=== PATIENT | male | born 1970 | race Two or more races ===

== ENCOUNTER 2017-05-20 01:29 | Inpatient (IN) | payer MEDICAID ==
[~2017-05-20] VITALS: Ht 157.5 cm; Wt 74.4 kg
[~2017-05-20 01:29] MED LIST: ALBUAER3 IN; ALCOPAD62 XX; AZIT250T PO; INSUINJ37 SC; [UNRECOGNIZED DRUG - CODE] XX
[2017-05-20] MEDS ORDERED: DEXTROSE (50%) 50ML SYRG IV ONE ×2 (02:45→03:30)
[2017-05-20 02:47] LABS: Eosinophils # (auto) 0 uL; Mean Corpuscular Volume 94.5 fL (80.0-100.0)
[2017-05-20 02:50] LABS: Basophils # (auto) 0.1 uL; Basophils % (auto) 0.6 % (0.0-2.0); Eosinophils % (auto) 0.4 % (0.0-7.0); Hematocrit 18.8 % (41.0-53.0); Lymphocytes % (auto) 12.4 % (10.0-50.0); Mean Corpuscular Hemoglobin 32.5 pg (28.0-32.0); Mean Corpuscular Hgb Conc. 34.4 g/dL (32.0-36.0); Monocytes # (auto) 0.4 uL; Monocytes % (auto) 4.5 % (0.0-12.0); Neutrophils # (auto) 6.9 uL; Neutrophils % (auto) 82.1 % (37.0-80.0); Platelet Count (auto) 366 10^3/uL (140-450); Red Blood Cells 1.99 10^6/uL (4.5-5.90); Red Cell Distribution Width 13.5 % (11.8-14.3); White Blood Cell 8.4 10^3/uL (4.4-10.8)
[2017-05-20 02:56] LABS: Hemoglobin 6.5 g/dL (13.5-17.5)
[2017-05-20 03:11] LABS: Albumin 2.2 g/dL (3.4-5.0); Anion Gap 10 (5-15); Blood Urea Nitrogen 32 mg/dL (7-18); Calcium 8.3 mg/dL (8.5-10.1); Carbon Dioxide 21 mmol/L (21-32); Chloride 108 mmol/L (98-107); Magnesium 2.3 mg/dL (1.6-2.6); Sodium 139 mmol/L (136-145)
[2017-05-20 03:13] LABS: Alanine Aminotransferase 14 U/L (16-61); Aspartate Aminotransferase 20 U/L (15-37); GFR African American 30 mL/min; GFR Non-African American 25 mL/min
[2017-05-20 03:16] LABS: Glucose 34 mg/dL (74-106); Potassium 6.5 mmol/L (3.5-5.1)
[2017-05-20 03:17] LABS: Alkaline Phosphatase 90 U/L (45-117); Bilirubin, Total 0.1 mg/dL (0.2-1.0); Total Protein 6.1 g/dL (6.4-8.2)
[2017-05-20] MEDS ORDERED: SODIUM BICARBONATE 8.4 % INJ 50ML VIAL IV ONE (03:30)
[2017-05-20] MEDS ORDERED: InsuLIN REG 1unit/0.01ml Soln (100units/ml) IV ONE (03:30)
[2017-05-20] MEDS ORDERED: CALCIUM CHL 100MG/ML 1,000 MG in D5W 5% 100 ML IV ONE (03:30)
[2017-05-20 04:41] LABS: Alcohol, Urine < 3.0 mg/dL (0-5); Amphetamine Screen, Urine NEGATIVE (NEGATIVE); Barbiturate Scree,Urine NEGATIVE (NEGATIVE); Benzodiazephine Screen, Urine NEGATIVE (NEGATIVE); Cannabinoid Screen, Urine NEGATIVE (NEGATIVE); Cocaine Screen, Urine NEGATIVE (NEGATIVE); Opiate Scree,Urine NEGATIVE (NEGATIVE); Phencyclidine Screen, Urine NEGATIVE (NEGATIVE)
[2017-05-20 04:44] LABS: Urine Bacteria NONE SEEN /hpf (None Seen); Urine Blood Negative /uL (Negative); Urine Specific Gravity 1.009 (1.001-1.035); Urine WBC 1 /hpf (0 - 3)
[2017-05-20] MEDS ORDERED: SODIUM POLYSTYRENE SULF 15GM/60ML SUSP PO ONE ×2 (06:00→12:45)
[2017-05-20 07:07] LABS: BUN/Creatinine Ratio 10.6; Bilirubin, Total 0.1 mg/dL (0.2-1.0); Calcium 7.8 mg/dL (8.5-10.1); Total Protein 5.7 g/dL (6.4-8.2)
[2017-05-20 07:14] LABS: Potassium 6.8 mmol/L (3.5-5.1)
[2017-05-20] MEDS ORDERED: NITROGLYCERIN 0.4 MG SL TAB SL PRN (08:15)
[2017-05-20] MEDS ORDERED: TEMAZEPAM 15 MG CAP PO PRN (08:15)
[2017-05-20] MEDS ORDERED: DEXTROSE (50%) 50ML SYRG IV PRN (08:15)
[2017-05-20] MEDS ORDERED: PANTOPRAZOLE 40 MG/10 ML VIAL IV ONE (08:15)
[2017-05-20] MEDS ORDERED: HYDROcodone-ACET 5/325MG TAB PO PRN (08:15)
[2017-05-20] MEDS ORDERED: ACETAMINOPHEN 500 MG TAB PO PRN (08:15)
[2017-05-20] MEDS ORDERED: PROMETHAZINE HCL 25 MG/ML 1ML IV PRN (08:15)
[2017-05-20] MEDS ORDERED: LORazepam 0.5 MG TAB PO PRN (08:15)
[2017-05-20] MEDS ORDERED: MORPHINE SULFATE 4 MG/ML SYR/VIAL IV PRN ×2 (08:15)
[2017-05-20] MEDS: PANTOPRAZOLE 40 MG/10 ML VIAL IV SCH (09:00)
[2017-05-20] MEDS: SODIUM CHLORIDE 0.9% 1,000 ML IV SCH ×3 (09:00→21:24)
[2017-05-20 09:32] LABS: Amylase 117 U/L (25-115); CRP High Sensitivity < 0.02 mg/dL (< 0.3); Lipase 254 U/L (73-393)
[2017-05-20 11:31] LABS: BUN/Creatinine Ratio 10.6
[2017-05-20 11:34] LABS: Potassium 5.8 mmol/L (3.5-5.1)
[2017-05-20] MEDS: ACCU-CHEK COMFORT CURVE STRIP VI SCH ×3 (12:08→20:07)
[2017-05-20 12:15] VITALS: BP 138/103
[2017-05-20 12:30] VITALS: BP 175/100
[2017-05-20] MEDS ORDERED: FUROSEMIDE 40 MG/4 ML VIAL IV ONE (12:30)
[2017-05-20] MEDS ORDERED: SODIUM CHLORIDE 0.9% 1,000 ML IV ONE (12:30)
[2017-05-20] MEDS: metroNIDAZOLE 500MG/100ML 100 ML IV SCH ×2 (14:12→22:04)
[2017-05-20 15:00] VITALS: BP 166/102
[2017-05-20 17:47] LABS: Hematocrit 21.3 % (41.0-53.0); Hemoglobin 7.1 g/dL (13.5-17.5)
[2017-05-20 17:50] LABS: INR 0.89 (0.9-1.15); Prothrombin Time 9.7 sec (9.37-12.3)
[2017-05-20 17:55] LABS: Phosphorus 4.9 mg/dL (2.5-4.90); Uric Acid 5.8 mg/dL (3.5-7.2)
[2017-05-20] MEDS: LABETALOL HCL 5 MG/ML ML 20ML VIAL IV PRN (20:40)
[2017-05-20] MEDS ORDERED: NIFE60TA59 PO (21:18)
[2017-05-20] MEDS ORDERED: ASPI81CH43 PO (21:18)
[2017-05-20] MEDS ORDERED: HYDR25TA35 PO (21:18)
[2017-05-20] MEDS: SODIUM BICARBONATE 650 MG TAB PO SCH (23:10)
[2017-05-20] MEDS: hydrALAZINE HCL 25 MG TAB PO SCH (23:10)
[2017-05-21] MEDS: ACCU-CHEK COMFORT CURVE STRIP VI SCH ×6 (00:06→20:00)
[2017-05-21 00:31] LABS: Hematocrit 19.8 % (41.0-53.0)
[2017-05-21 00:35] LABS: Hemoglobin 6.9 g/dL (13.5-17.5)
[2017-05-21 05:06] LABS: Basophils # (auto) 0.1 uL; Eosinophils # (auto) 0.1 uL; Lymphocytes # (auto) 1.7 uL; Lymphocytes % (auto) 30.2 % (10.0-50.0); Monocytes # (auto) 0.3 uL; Neutrophils # (auto) 3.5 uL
[2017-05-21 05:09] LABS: Basophils % (auto) 1.2 % (0.0-2.0); Eosinophils % (auto) 2.1 % (0.0-7.0); Hematocrit 20.6 % (41.0-53.0); Mean Corpuscular Hemoglobin 31.7 pg (28.0-32.0); Mean Corpuscular Hgb Conc. 33.3 g/dL (32.0-36.0); Monocytes % (auto) 5.7 % (0.0-12.0); Neutrophils % (auto) 60.8 % (37.0-80.0); Nucleated Red Blood Cells % 0.1 %; Platelet Count (auto) 287 10^3/uL (140-450); Red Blood Cells 2.17 10^6/uL (4.5-5.90); Red Cell Distribution Width 15.1 % (11.8-14.3); White Blood Cell 5.7 10^3/uL (4.4-10.8)
[2017-05-21 05:31] LABS: Hemoglobin 6.9 g/dL (13.5-17.5)
[2017-05-21 05:32] LABS: BUN/Creatinine Ratio 8.7; Calcium 8.1 mg/dL (8.5-10.1)
[2017-05-21] MEDS: metroNIDAZOLE 500MG/100ML 100 ML IV SCH ×3 (06:08→22:00)
[2017-05-21] MEDS: hydrALAZINE HCL 25 MG TAB PO SCH ×3 (06:08→22:00)
[2017-05-21 06:22] LABS: Bilirubin, Total 0.2 mg/dL (0.2-1.0); Total Protein 5.6 g/dL (6.4-8.2)
[2017-05-21] MEDS: SODIUM CHLORIDE 0.9% 1,000 ML IV SCH ×3 (08:12→23:00)
[2017-05-21 09:08] VITALS: BP 151/98
[2017-05-21 09:32] VITALS: BP 157/86
[2017-05-21] MEDS: PANTOPRAZOLE 40 MG/10 ML VIAL IV SCH (09:56)
[2017-05-21] MEDS: NIFEdipine ER 30 MG TAB PO SCH (09:56)
[2017-05-21] MEDS: SODIUM BICARBONATE 650 MG TAB PO SCH ×2 (09:56→22:00)
[2017-05-21 12:01] VITALS: BP 180/99
[2017-05-21] MEDS: LABETALOL HCL 5 MG/ML ML 20ML VIAL IV PRN (12:43)
[2017-05-21] MEDS: FAMOTIDINE 20 MG TAB PO SCH (13:03)
[2017-05-21 13:37] LABS: Hemoglobin 8.2 g/dL (13.5-17.5)
[2017-05-21 13:40] LABS: Hematocrit 24.4 % (41.0-53.0)
[2017-05-21 14:05] LABS: % Iron Saturation 34.4 % (20-55)
[2017-05-21 15:33] VITALS: BP 159/90
[2017-05-21 16:00] VITALS: BP 141/88
[2017-05-21] MEDS ORDERED: SODI650T PO (16:12)
[2017-05-21 20:00] VITALS: BP 149/92
[2017-05-21 21:09] LABS: Urine Bacteria NONE SEEN /hpf (None Seen); Urine Blood Negative /uL (Negative); Urine Hyaline Cast FEW /lpf (0 - 2); Urine Mucus FEW (None Seen); Urine WBC 2 /hpf (0 - 3)
[2017-05-21] MEDS ORDERED: FAMOTIDINE 20 MG TAB PO SCH (22:00)
[2017-05-22] VITALS (7 sets, daily range): BP systolic 121–161; BP diastolic 61–88
[2017-05-22 03:06] LABS: RPR Non Reactive (Non Reactive)
[2017-05-22] MEDS: ACCU-CHEK COMFORT CURVE STRIP VI SCH ×5 (04:00→20:34)
[2017-05-22 05:56] LABS: Basophils % (auto) 0.9 % (0.0-2.0); Eosinophils # (auto) 0.1 uL; Hematocrit 24.5 % (41.0-53.0); Hemoglobin 8.3 g/dL (13.5-17.5); Monocytes % (auto) 6.1 % (0.0-12.0); Red Cell Distribution Width 15.6 % (11.8-14.3)
[2017-05-22 06:01] LABS: Basophils # (auto) 0.1 uL; Eosinophils % (auto) 2.3 % (0.0-7.0); Lymphocytes # (auto) 1.6 uL; Lymphocytes % (auto) 26.9 % (10.0-50.0); Mean Corpuscular Hemoglobin 31.2 pg (28.0-32.0); Mean Corpuscular Volume 91.9 fL (80.0-100.0); Monocytes # (auto) 0.4 uL; Neutrophils # (auto) 3.7 uL; Neutrophils % (auto) 63.8 % (37.0-80.0); Platelet Count (auto) 277 10^3/uL (140-450); Red Blood Cells 2.66 10^6/uL (4.5-5.90); White Blood Cell 5.8 10^3/uL (4.4-10.8)
[2017-05-22] MEDS: metroNIDAZOLE 500MG/100ML 100 ML IV SCH ×3 (06:09→21:57)
[2017-05-22] MEDS: hydrALAZINE HCL 25 MG TAB PO SCH ×3 (06:10→21:57)
[2017-05-22 06:22] LABS: Albumin 1.8 g/dL (3.4-5.0); Bilirubin, Total 0.3 mg/dL (0.2-1.0); Calcium 7.5 mg/dL (8.5-10.1); Magnesium 1.8 mg/dL (1.6-2.6); Potassium 4.8 mmol/L (3.5-5.1); Total Protein 5.2 g/dL (6.4-8.2)
[2017-05-22 08:07] LABS: Immunoglobulin G, Serum 691 mg/dL (700-1600)
[2017-05-22] MEDS ORDERED: MAGNESIUM SULFATE 1GM/100ML 100 ML IV ONE (09:45)
[2017-05-22] MEDS: SODIUM CHLORIDE 0.9% 1,000 ML IV SCH ×2 (09:50→20:27)
[2017-05-22] MEDS: SODIUM BICARBONATE 650 MG TAB PO SCH ×2 (10:56→21:57)
[2017-05-22] MEDS: FAMOTIDINE 20 MG TAB PO SCH (10:56)
[2017-05-22] MEDS: NIFEdipine ER 30 MG TAB PO SCH (10:58)
[2017-05-22 16:08] LABS: Protein, Urine 372.9 mg/dL (0.0-11.9)
[2017-05-22] MEDS ORDERED: METF-370 PO (18:03)
[2017-05-23] MEDS: ACCU-CHEK COMFORT CURVE STRIP VI SCH ×7 (00:26→23:52)
[2017-05-23] MEDS: SODIUM CHLORIDE 0.9% 1,000 ML IV SCH ×2 (04:42→17:56)
[2017-05-23 05:25] VITALS: BP 127/70
[2017-05-23] MEDS: metroNIDAZOLE 500MG/100ML 100 ML IV SCH (05:40)
[2017-05-23] MEDS: hydrALAZINE HCL 25 MG TAB PO SCH ×3 (05:41→22:14)
[2017-05-23 05:42] LABS: Eosinophils # (auto) 0.1 uL; Monocytes # (auto) 0.3 uL; Neutrophils # (auto) 3.1 uL
[2017-05-23 05:43] LABS: BUN/Creatinine Ratio 7.9; Calcium 7.6 mg/dL (8.5-10.1); Magnesium 2.3 mg/dL (1.6-2.6); Potassium 4.9 mmol/L (3.5-5.1)
[2017-05-23 05:45] LABS: Basophils # (auto) 0.1 uL; Basophils % (auto) 1.1 % (0.0-2.0); Eosinophils % (auto) 2.7 % (0.0-7.0); Hematocrit 22.6 % (41.0-53.0); Hemoglobin 8.2 g/dL (13.5-17.5); Lymphocytes # (auto) 1.2 uL; Lymphocytes % (auto) 24.6 % (10.0-50.0); Mean Corpuscular Hemoglobin 33.1 pg (28.0-32.0); Mean Corpuscular Hgb Conc. 36.1 g/dL (32.0-36.0); Mean Corpuscular Volume 91.8 fL (80.0-100.0); Monocytes % (auto) 6.7 % (0.0-12.0); Neutrophils % (auto) 64.9 % (37.0-80.0); Platelet Count (auto) 254 10^3/uL (140-450); Red Blood Cells 2.46 10^6/uL (4.5-5.90); Red Cell Distribution Width 15.8 % (11.8-14.3); White Blood Cell 4.8 10^3/uL (4.4-10.8)
[2017-05-23 09:00] VITALS: BP 134/87
[2017-05-23] MEDS: SODIUM BICARBONATE 650 MG TAB PO SCH ×2 (12:21→22:14)
[2017-05-23] MEDS: NIFEdipine ER 30 MG TAB PO SCH (12:23)
[2017-05-23] MEDS: metroNIDAZOLE 500 MG TAB PO SCH ×3 (12:23→23:52)
[2017-05-23] MEDS: FAMOTIDINE 20 MG TAB PO SCH (12:23)
[2017-05-23 13:00] VITALS: BP 152/84
[2017-05-23 17:00] VITALS: BP 162/86
[2017-05-23 22:00] VITALS: BP 144/84
[2017-05-24] MEDS: SODIUM CHLORIDE 0.9% 1,000 ML IV SCH ×3 (00:59→12:45)
[2017-05-24] MEDS: ACCU-CHEK COMFORT CURVE STRIP VI SCH ×5 (04:13→20:18)
[2017-05-24 05:00] VITALS: BP 132/72
[2017-05-24] MEDS: metroNIDAZOLE 500 MG TAB PO SCH ×3 (05:41→17:56)
[2017-05-24] MEDS: hydrALAZINE HCL 25 MG TAB PO SCH ×3 (05:41→21:57)
[2017-05-24 07:37] LABS: Hematocrit 23.1 % (41.0-53.0)
[2017-05-24 07:54] LABS: BUN/Creatinine Ratio 7.6; Calcium 7.6 mg/dL (8.5-10.1)
[2017-05-24 08:00] VITALS: BP 142/78
[2017-05-24 09:00] VITALS: BP 142/78
[2017-05-24 09:45] LABS: Hepatitis B Surface Antigen Negative (Negative)
[2017-05-24 10:10] LABS: Hepatitis C Antibody Negative (Negative)
[2017-05-24] MEDS: NIFEdipine ER 30 MG TAB PO SCH (11:09)
[2017-05-24] MEDS: SODIUM BICARBONATE 650 MG TAB PO SCH ×2 (11:09→21:57)
[2017-05-24] MEDS: FAMOTIDINE 20 MG TAB PO SCH (11:09)
[2017-05-24 13:00] VITALS: BP 154/95
[2017-05-24 13:44] LABS: Creatinine, Urine 36 mg/dL (30.0-125.0); Sodium Urine 108 mmol/L (40-220)
[2017-05-24 17:00] VITALS: BP 149/81
[2017-05-24 22:00] VITALS: BP 154/84
[2017-05-25] MEDS: metroNIDAZOLE 500 MG TAB PO SCH ×4 (00:33→17:46)
[2017-05-25] MEDS: ACCU-CHEK COMFORT CURVE STRIP VI SCH ×5 (00:34→16:00)
[2017-05-25 05:35] VITALS: BP 123/80
[2017-05-25] MEDS: hydrALAZINE HCL 25 MG TAB PO SCH ×2 (05:36→14:03)
[2017-05-25] MEDS: SODIUM CHLORIDE 0.9% 1,000 ML IV SCH (05:36)
[2017-05-25 05:50] LABS: Calcium 7.9 mg/dL (8.5-10.1); Potassium 5.1 mmol/L (3.5-5.1)
[2017-05-25 05:54] LABS: BUN/Creatinine Ratio 7.9
[2017-05-25] MEDS ORDERED: GELATIN 1 SPONGE SIZE 50 TOP ONE (06:30)
[2017-05-25] MEDS ORDERED: LIDOCAINE 2%HCL (LOCAL ANESTH.) INJ 20ML MDV ONE (06:30)
[2017-05-25 07:52] VITALS: BP 141/79
[2017-05-25] MEDS: SODIUM BICARBONATE 650 MG TAB PO SCH (09:14)
[2017-05-25] MEDS: NIFEdipine ER 30 MG TAB PO SCH (09:16)
[2017-05-25] MEDS: FAMOTIDINE 20 MG TAB PO SCH (09:16)
[2017-05-25 11:31] VITALS: BP 144/72
[2017-05-25 16:51] VITALS: BP 145/83
[2017-05-25 22:00] VITALS: BP 143/77
[2017-05-26] VITALS (13 sets, daily range): BP systolic 139–155; BP diastolic 77–93
[2017-05-26] MEDS: SODIUM BICARBONATE 650 MG TAB PO SCH ×3 (00:11→21:52)
[2017-05-26] MEDS: ACCU-CHEK COMFORT CURVE STRIP VI SCH ×4 (00:11→09:44)
[2017-05-26] MEDS: hydrALAZINE HCL 25 MG TAB PO SCH ×4 (00:12→21:53)
[2017-05-26] MEDS: metroNIDAZOLE 500 MG TAB PO SCH ×4 (00:14→17:30)
[2017-05-26 07:16] LABS: BUN/Creatinine Ratio 7.7; Calcium 8.1 mg/dL (8.5-10.1); Potassium 5.2 mmol/L (3.5-5.1)
[2017-05-26 07:26] LABS: Hemoglobin 8.8 g/dL (13.5-17.5)
[2017-05-26] MEDS ORDERED: LIDOCAINE 2%HCL (LOCAL ANESTH.) INJ 20ML MDV ONE (08:20)
[2017-05-26] MEDS ORDERED: fentaNYL CITRATE 100 MCG/2 ML VL ONE (08:22)
[2017-05-26] MEDS ORDERED: MIDAZOLAM HCL 1MG/1ML-2 ML VIAL ONE (08:22)
[2017-05-26] MEDS: FAMOTIDINE 20 MG TAB PO SCH (09:45)
[2017-05-26] MEDS: NIFEdipine ER 30 MG TAB PO SCH (09:45)
[2017-05-26] MEDS ORDERED: LISINOPRIL 10 MG TAB PO SCH (10:00)
[2017-05-26] MEDS: LABETALOL HCL 5 MG/ML ML 20ML VIAL IV PRN (13:43)
[2017-05-26] MEDS ORDERED: hydrALAZINE HCL 25 MG TAB PO ONE (14:15)
[2017-05-26 14:24] LABS: Basophils # (auto) 0 uL; Basophils % (auto) 0.7 % (0.0-2.0); Eosinophils # (auto) 0.1 uL; Eosinophils % (auto) 2.4 % (0.0-7.0); Hemoglobin 7.7 g/dL (13.5-17.5); Lymphocytes % (auto) 19.2 % (10.0-50.0); Mean Corpuscular Hemoglobin 31.3 pg (28.0-32.0); Mean Corpuscular Hgb Conc. 33.6 g/dL (32.0-36.0); Mean Corpuscular Volume 93.2 fL (80.0-100.0); Monocytes # (auto) 0.3 uL; Monocytes % (auto) 5.9 % (0.0-12.0); Neutrophils # (auto) 3.6 uL; Neutrophils % (auto) 71.8 % (37.0-80.0); Nucleated Red Blood Cells % 0.1 %; Platelet Count (auto) 211 10^3/uL (140-450); Red Blood Cells 2.47 10^6/uL (4.5-5.90); Red Cell Distribution Width 15.7 % (11.8-14.3)
[2017-05-26] MEDS ORDERED: SODIUM POLYSTYRENE SULF 15GM/60ML SUSP PO ONE (17:00)
[2017-05-26 20:32] LABS: Urine Bacteria NONE SEEN /hpf (None Seen); Urine Blood 1+ /uL (Negative); Urine WBC 2 /hpf (0 - 3)
[2017-05-26 23:02] LABS: Basophils # (auto) 0 uL; Eosinophils # (auto) 0.1 uL; Lymphocytes # (auto) 0.9 uL; Mean Corpuscular Hemoglobin 31.3 pg (28.0-32.0); Mean Corpuscular Hgb Conc. 33.5 g/dL (32.0-36.0)
[2017-05-26 23:04] LABS: Basophils % (auto) 0.4 % (0.0-2.0); Eosinophils % (auto) 1.8 % (0.0-7.0); Hematocrit 21.5 % (41.0-53.0); Hemoglobin 7.2 g/dL (13.5-17.5); Lymphocytes % (auto) 16.5 % (10.0-50.0); Mean Corpuscular Volume 93.6 fL (80.0-100.0); Monocytes # (auto) 0.4 uL; Monocytes % (auto) 6.5 % (0.0-12.0); Neutrophils # (auto) 4.1 uL; Neutrophils % (auto) 74.8 % (37.0-80.0); Platelet Count (auto) 201 10^3/uL (140-450); Red Cell Distribution Width 15.7 % (11.8-14.3); White Blood Cell 5.5 10^3/uL (4.4-10.8)
[2017-05-27] VITALS (8 sets, daily range): BP systolic 129–166; BP diastolic 77–96
[2017-05-27] MEDS: metroNIDAZOLE 500 MG TAB PO SCH ×3 (00:13→12:18)
[2017-05-27 06:04] LABS: Basophils # (auto) 0 uL; Eosinophils # (auto) 0.1 uL; Neutrophils # (auto) 3.6 uL; White Blood Cell 4.9 10^3/uL (4.4-10.8)
[2017-05-27 06:05] LABS: Red Cell Distribution Width 15.4 % (11.8-14.3)
[2017-05-27 06:07] LABS: Basophils % (auto) 0.8 % (0.0-2.0); Eosinophils % (auto) 1.8 % (0.0-7.0); Hematocrit 20.2 % (41.0-53.0); Lymphocytes # (auto) 0.8 uL; Mean Corpuscular Hemoglobin 31.8 pg (28.0-32.0); Mean Corpuscular Hgb Conc. 34.7 g/dL (32.0-36.0); Mean Corpuscular Volume 91.7 fL (80.0-100.0); Monocytes # (auto) 0.4 uL; Monocytes % (auto) 7.6 % (0.0-12.0); Neutrophils % (auto) 72.8 % (37.0-80.0); Platelet Count (auto) 191 10^3/uL (140-450); Red Blood Cells 2.21 10^6/uL (4.5-5.90)
[2017-05-27] MEDS: hydrALAZINE HCL 25 MG TAB PO SCH ×2 (06:22→14:14)
[2017-05-27 06:24] LABS: Calcium 8.2 mg/dL (8.5-10.1); Potassium 4.6 mmol/L (3.5-5.1)
[2017-05-27 06:43] LABS: BUN/Creatinine Ratio 7.5
[2017-05-27] MEDS: FAMOTIDINE 20 MG TAB PO SCH (09:15)
[2017-05-27] MEDS: SODIUM BICARBONATE 650 MG TAB PO SCH (09:15)
[2017-05-27] MEDS: NIFEdipine ER 30 MG TAB PO SCH (09:16)
[2017-05-27] MEDS ORDERED: HYDR50TA15 PO (11:08)
[2017-05-27] MEDS ORDERED: NIFE90TA30 PO (11:08)
[2017-05-27] MEDS ORDERED: METR500T PO (11:08)
[2017-05-27] MEDS ORDERED: NIFEdipine ER 30 MG TAB PO ONE (11:15)
[2017-05-27] MEDS ORDERED: MORPHINE SULFATE 4 MG/ML SYR/VIAL IV PRN (11:15)
[2017-05-27] MEDS ORDERED: TEMAZEPAM 15 MG CAP PO PRN (11:15)
[2017-05-27] MEDS ORDERED: HYDROcodone-ACET 5/325MG TAB PO PRN (11:15)
[2017-05-27] MEDS ORDERED: LORazepam 0.5 MG TAB PO PRN (11:15)
[2017-05-27] MEDS ORDERED: FER325T PO (11:16)
[2017-05-27 15:38] LABS: Hematocrit 24.7 % (41.0-53.0); Hemoglobin 8.5 g/dL (13.5-17.5)
[2017-05-27 15:52] LABS: INR 0.95 (0.9-1.15); Prothrombin Time 10.3 sec (9.37-12.3)
[2017-05-28] MEDS ORDERED: NIFEdipine ER 30 MG TAB PO SCH (10:00)
== END 2017-05-27 16:30 | disposition home or self-care (01) | DRG 420 ==
LOC: EDBD 01:29 → ER 01:29 → TELE 01:30 → DOU IN ICU 05-21 14:59 → TELE-WESTW 05-22 12:27
PROVIDERS: ADMIT Internal Medicine; ATTEND Internal Medicine
PROC: 30233N1 Transfusion of Nonautologous Red Blood Cells into Peripheral Vein, Percutaneous Approach (ICD-10-PCS; principal; 2017-05-20)
PROC: 0TB13ZX Excision of Left Kidney, Percutaneous Approach, Diagnostic (ICD-10-PCS; 2017-05-26)
DX: E11.649 Type 2 diabetes mellitus with hypoglycemia without coma (principal); N17.0 Acute kidney failure with tubular necrosis; A04.72 Enterocolitis due to Clostridium difficile, not specified as recurrent; E44.0 Moderate protein-calorie malnutrition; E11.22 Type 2 diabetes mellitus with diabetic chronic kidney disease; I12.9 Hypertensive chronic kidney disease with stage 1 through stage 4 chronic kidney disease, or unspecified chronic kidney disease; I16.0 Hypertensive urgency; E87.5 Hyperkalemia; N18.9 Chronic kidney disease, unspecified; D63.8 Anemia in other chronic diseases classified elsewhere; Z82.49 Family history of ischemic heart disease and other diseases of the circulatory system; Z83.3 Family history of diabetes mellitus; T38.3X5A Adverse effect of insulin and oral hypoglycemic [antidiabetic] drugs, initial encounter
CPT/HCPCS: 10022; 36415; 71045; 74176; 76775; 77012; 80048; 80053; 80061; 80307; 81001; 82043; 82150; 82270; 82306; 82378; 82570; 82784; 82962; 83036; 83520; 83540; 83550; 83690; 83735; 83970; 84100; 84132; 84156; 84300; 84484; 84550; 85014; 85018; 85025; 85045; 85610; 85652; 85730; 86038; 86141; 86160; 86256; 86334; 86335; 86592; 86703; 86803; 86850; 86900; 86901; 86920; 87081; 87340; 87493; 93005; 96374; 96375; 96376; C9113; J1815; J2250; J3490; J7060

== ENCOUNTER 2019-04-27 12:18 | Inpatient (IN) | payer SELFPAY ==
[~2019-04-27] VITALS: Ht 172.7 cm; Wt 71.7 kg
[~2019-04-27 12:18] MED LIST changes: +ACET500T48 PO; -ALBUAER3 IN; -ALCOPAD62 XX; +ATOR20TA50 PO; -AZIT250T PO; +CALC667C5 PO; +DOCU-94 PO; +FER325T PO; +HYDR-2691 PO; -INSUINJ37 SC; +NIFE1TAB30 PO; -[UNRECOGNIZED DRUG - CODE] XX
[2019-04-27] MEDS ORDERED: ONDANSETRON ODT 4 MG TAB PO ONE ×2 (12:53→13:00)
[2019-04-27 13:54] LABS: Basophils # (auto) 0.1 uL; Basophils % (auto) 1.2 % (0.0-2.0); Eosinophils # (auto) 0.3 uL; Eosinophils % (auto) 3.3 % (0.0-7.0); Hematocrit 31.3 % (41.0-53.0); Hemoglobin 10.6 g/dL (13.5-17.5); Mean Corpuscular Hemoglobin 30.9 pg (28.0-32.0); Mean Corpuscular Hgb Conc. 34.1 g/dL (32.0-36.0); Mean Corpuscular Volume 90.7 fL (80.0-100.0); Monocytes # (auto) 0.3 uL; Monocytes % (auto) 3.8 % (0.0-12.0); Neutrophils # (auto) 6.3 uL; Neutrophils % (auto) 79.7 % (37.0-80.0); Platelet Count (auto) 216 10^3/uL (140-450); Red Blood Cells 3.45 10^6/uL (4.5-5.90); Red Cell Distribution Width 14.9 % (11.8-14.3); White Blood Cell 7.9 10^3/uL (4.4-10.8)
[2019-04-27 14:06] LABS: Albumin 2.9 g/dL (3.4-5.0); Anion Gap 14 (5-15); BUN/Creatinine Ratio 4.6; Blood Urea Nitrogen 55 mg/dL (7-18); Calcium 7.3 mg/dL (8.5-10.1); Carbon Dioxide 25 mmol/L (21-32); Chloride 97 mmol/L (98-107); GFR African American 6 mL/min; GFR Non-African American 5 mL/min; Glucose 140 mg/dL (74-106); Potassium 4.7 mmol/L (3.5-5.1); Sodium 136 mmol/L (136-145)
[2019-04-27 14:09] LABS: Alanine Aminotransferase 28 U/L (16-61); Alkaline Phosphatase 82 U/L (45-117); Aspartate Aminotransferase 22 U/L (15-37); Bilirubin, Total 0.3 mg/dL (0.2-1.0); Blood Alcohol < 3.0 mg/dL (0-5); Total Protein 6.7 g/dL (6.4-8.2)
[2019-04-27] MEDS ORDERED: LEVETIRACETAM INJ 1,000 MG in D5W 5% 100 ML IV ONE (14:30)
[2019-04-27] MEDS ORDERED: PROMETHAZINE HCL 25 MG/ML 1ML IV PRN (15:15)
[2019-04-27] MEDS ORDERED: MORPHINE SULF INJ 2 MG/ML SYRINGE 1ML IV PRN (15:15)
[2019-04-27] MEDS ORDERED: DEXTROSE (50%) 50ML SYRG IV PRN (15:15)
[2019-04-27] MEDS ORDERED: LACTULOSE 20Gm/30ML SOLN PO PRN (15:15)
[2019-04-27] MEDS ORDERED: LORazepam 2MG/ML-1ML VIAL IV PRN (15:15)
[2019-04-27] MEDS ORDERED: ACETAMINOPHEN 500 MG TAB PO PRN (15:15)
[2019-04-27] MEDS ORDERED: TEMAZEPAM 15 MG CAP PO PRN (15:15)
[2019-04-27] MEDS ORDERED: NITROGLYCERIN 0.4 MG SL TAB SL PRN (15:15)
[2019-04-27] MEDS ORDERED: traMADol HCL 50 MG TAB PO PRN (15:15)
[2019-04-27] MEDS: InsuLIN REG 1unit/0.01ml Soln (100units/ml) SC SCH ×2 (17:00→22:00)
[2019-04-27] MEDS: ACCU-CHEK COMFORT CURVE STRIP VI SCH ×2 (17:29→22:05)
[2019-04-27 17:57] VITALS: BP 168/91
[2019-04-27] MEDS: CALCIUM ACETATE 667 MG CAP PO SCH (18:00)
[2019-04-27 18:11] VITALS: BP 168/91
--- NOTE | 2019-04-27 18:44 | NUR ---
PT ARRIVED TO FLOOR FROM ER AT APPROX. 1740. A/O X 4. AT BEDSIDE. C/O HEADACHE, MEDICATED WITH TYLENOL X 1. SEIZURE PRECAUTIONS IN PLACE. MONITORING CLOSELY.
--- NOTE | 2019-04-27 19:20 | NUR ---
Opening Shift Note Report received from day shift RN. Patient awake sitting in bed and A&O x4. No S/S of distress/SOB noted. Patient complains of headache 7/10 on a numerical scale. Will medicate as ordered. Seizure precautions continued. Instructed on POC and to call for assist PRN, will continue to monitor for changes Q1hr and PRN.
[2019-04-27] MEDS: FERROUS SULFATE 325 MG TAB PO SCH (20:46)
[2019-04-27 22:00] VITALS: BP 151/76
[2019-04-27] MEDS: hydrALAZINE HCL 25 MG TAB PO SCH (22:00)
[2019-04-27] MEDS: LEVETIRACETAM 500 MG TAB PO SCH (22:01)
[2019-04-27] MEDS: ATORVASTATIN 20 MG TAB PO SCH (22:01)
[2019-04-27] MEDS: DOCUSATE SOD 100 MG CAP PO SCH (22:01)
[2019-04-28] VITALS (8 sets, daily range): BP systolic 124–170; BP diastolic 74–92
[2019-04-28] MEDS: InsuLIN REG 1unit/0.01ml Soln (100units/ml) SC SCH ×5 (06:21→22:30)
[2019-04-28] MEDS: hydrALAZINE HCL 25 MG TAB PO SCH ×3 (06:21→22:23)
[2019-04-28] MEDS: ACCU-CHEK COMFORT CURVE STRIP VI SCH ×4 (06:22→22:24)
--- NOTE | 2019-04-28 07:00 | NUR ---
ASSUMED CARE OF PATIENT FROM FURNITURE MAKER THOMAS PEÑA. PATIENT IS AWAKE AND ALERT X4. PATIENT HAS NO S/S OF DISTRESS/SOB OR PAIN. INSTRUCTED PATIENT ON POC, PATIENT VERBALIZED UNDERSTANDING. FALL PRECAUTIONS IN PLACE, BED WHEELS LOCKED PADDED SIDE RAILS RAISED X2, BED ALARM ON, CALL LIGHT IS WITHIN REACH. WILL CONTINUE TO MONITOR.
[2019-04-28 07:23] LABS: Basophils # (auto) 0.1 uL; Basophils % (auto) 1.2 % (0.0-2.0); Eosinophils # (auto) 0.3 uL; Eosinophils % (auto) 5.9 % (0.0-7.0); Hematocrit 25.6 % (41.0-53.0); Hemoglobin 8.9 g/dL (13.5-17.5); Lymphocytes # (auto) 1.6 uL; Lymphocytes % (auto) 28.5 % (10.0-50.0); Mean Corpuscular Hemoglobin 31.6 pg (28.0-32.0); Mean Corpuscular Hgb Conc. 34.8 g/dL (32.0-36.0); Mean Corpuscular Volume 90.9 fL (80.0-100.0); Monocytes # (auto) 0.3 uL; Monocytes % (auto) 6.1 % (0.0-12.0); Neutrophils # (auto) 3.2 uL; Neutrophils % (auto) 58.3 % (37.0-80.0); Platelet Count (auto) 184 10^3/uL (140-450); Red Blood Cells 2.82 10^6/uL (4.5-5.90); Red Cell Distribution Width 15.4 % (11.8-14.3); White Blood Cell 5.5 10^3/uL (4.4-10.8)
[2019-04-28 07:35] LABS: Calcium 6.7 mg/dL (8.5-10.1); Potassium 4.7 mmol/L (3.5-5.1)
[2019-04-28 07:41] LABS: Albumin 2.5 g/dL (3.4-5.0); BUN/Creatinine Ratio 4.9; Bilirubin, Total 0.3 mg/dL (0.2-1.0); Total Protein 5.6 g/dL (6.4-8.2)
[2019-04-28] MEDS: CALCIUM ACETATE 667 MG CAP PO SCH (08:00)
--- NOTE | 2019-04-28 08:07 | NUR ---
PAGED CORPORATE LOGISTICS MANAGER HOSPITALIST FRO CRITICAL CREATININE. MD PATEL CALLED BACK, MD IS AWARE OF CREATININE LEVEL. NO NEW ORDERS GIVEN.
[2019-04-28] MEDS: LEVETIRACETAM 500 MG TAB PO SCH ×2 (10:06→22:23)
[2019-04-28] MEDS: DOCUSATE SOD 100 MG CAP PO SCH ×2 (10:06→22:23)
[2019-04-28] MEDS: FERROUS SULFATE 325 MG TAB PO SCH ×3 (10:06→20:22)
[2019-04-28] MEDS: NIFEdipine ER 30 MG TAB PO SCH (10:07)
--- NOTE | 2019-04-28 10:10 | NUR ---
MD CAMERON AND MD SCHAEFER AT BEDSIDE. UPDATED MD ON PATIENT'S STATUS. PER MD SCHAEFER THIS IS A DOCTOR Abdirahman BLAND PATIENT (VERIFIED BY PATIENT) MD SCHAEFER WILL CALL Abdirahman BLAND TO INFORM HIM PATIENT IS HERE. US TO CHANGE CONSULT TO Abdirahman BLAND. MD CAMERON ORDERED CARDIO CONSULT AND MORPHINE. WILL FOLLOW THROUGH WITH ORDERS.
--- NOTE | 2019-04-28 10:20 | NUR ---
INFORMED MD CAMERON OF PATIENT'S BP OF 175/87. IS AWARE. NO NEW ORDERS GIVEN
[2019-04-28] MEDS ORDERED: MORPHINE SULFATE 4 MG/ML SYR/VIAL IV PRN (11:15)
[2019-04-28] MEDS: SEVELAMER 800 MG TAB PO SCH ×2 (11:49→17:41)
--- NOTE | 2019-04-28 12:40 | NUR ---
MD OCONNELL AT BEDSIDE UPDATED MD ON PATIENT'S STATUS. MD IS AWARE. MD ORDERED ECHO, EKG, ORTHOSTATIC VITALS, AND STRESS TEST. WILL PCVEV2T THROUGH WITH ORDERS.
--- NOTE | 2019-04-28 13:00 | NUR ---
MD Abdirahman BLAND CALLED AND WANTS PATIENT TO RESUME HOME PERITONEAL DIALYSIS. 2 GREEN BAGS AND LAST FILL WITH PURPLE BAG. PER MD PATIENT KNOW HOW TO ADMINISTER THE DIALYSIS, PATIENT STATES HE DOES AND ALL EQUIPMENT IS AT BEDSIDE. WILL CONTINUE TO MONITOR.
--- NOTE | 2019-04-28 14:00 | NUR ---
ECHO BEING DONE AT THIS TIME.
[2019-04-28] MEDS ORDERED: ADENOSINE 59 MG in GIVE UN-DILUTED 0 ML IV STA (14:29)
--- NOTE | 2019-04-28 15:16 | NUR ---
EKG DONE AND PLACED IN CHART.
--- NOTE | 2019-04-28 19:25 | NUR ---
ENDORSED CARE TO DANCE THERAPIST THOMAS PEÑA. PATIENT HAS NO S/S OF DISTRESS/SOB OR PAIN AT THIS TIME.
--- NOTE | 2019-04-28 19:30 | NUR ---
Opening Shift Note Report received from day shift RN. Patient awake sitting in bed and A&O x4. No S/S of distress/SOB noted and patient denies pain at this time. Seizure precautions continued. Instructed on POC and to call for assist PRN, will continue to monitor for changes Q1hr and PRN.
[2019-04-28] MEDS: ATORVASTATIN 20 MG TAB PO SCH (22:24)
--- NOTE | 2019-04-28 22:30 | NUR ---
GAVE 2 UNITS FOR A BLOOD GLUCOSE LEVEL OF 159.
[2019-04-29] VITALS (7 sets, daily range): BP systolic 117–145; BP diastolic 60–84
[2019-04-29] MEDS: hydrALAZINE HCL 25 MG TAB PO SCH ×3 (06:50→21:59)
[2019-04-29] MEDS: InsuLIN REG 1unit/0.01ml Soln (100units/ml) SC SCH ×4 (06:51→22:00)
[2019-04-29] MEDS: ACCU-CHEK COMFORT CURVE STRIP VI SCH ×4 (06:51→21:59)
--- NOTE | 2019-04-29 07:10 | NUR ---
OPENING SHIFT NOTE ASSUMED CARE OF PATIENT FROM SUPERVISOR SMOKE CONTROL RN MARIANA. PATIENT IS AWAKE AND ALERT X4. PATIENT HAS NO S/S OF DISTRESS/SOB OR PAIN. INSTRUCTED PATIENT ON POC, PATIENT VERBALIZED UNDERSTANDING. FALL PRECAUTIONS IN PLACE, BED WHEELS LOCKED PADDED SIDE RAILS RAISED X2, BED ALARM ON, CALL LIGHT IS WITHIN REACH. WILL CONTINUE TO MONITOR.
--- NOTE | 2019-04-29 07:37 | NUR ---
ENDORSED CARE TO DAY SHIFT RN. NO S/S OF DISTRESS OR COMPLAINTS OF PAIN AT THIS TIME. PATIENT REMINDED TO PROVIDE A URINE SAMPLE. PATIENT VERBALIZED UNDERSTANDING.
[2019-04-29 07:45] LABS: Basophils # (auto) 0.1 uL; Basophils % (auto) 1.2 % (0.0-2.0); Eosinophils # (auto) 0.1 uL; Eosinophils % (auto) 1.7 % (0.0-7.0); Hematocrit 29.5 % (41.0-53.0); Hemoglobin 9.9 g/dL (13.5-17.5); Lymphocytes # (auto) 0.9 uL; Lymphocytes % (auto) 12.7 % (10.0-50.0); Mean Corpuscular Hemoglobin 30.6 pg (28.0-32.0); Mean Corpuscular Hgb Conc. 33.5 g/dL (32.0-36.0); Mean Corpuscular Volume 91.1 fL (80.0-100.0); Monocytes # (auto) 0.2 uL; Monocytes % (auto) 2.9 % (0.0-12.0); Neutrophils # (auto) 5.6 uL; Neutrophils % (auto) 81.5 % (37.0-80.0); Platelet Count (auto) 214 10^3/uL (140-450); Red Blood Cells 3.24 10^6/uL (4.5-5.90); Red Cell Distribution Width 15.4 % (11.8-14.3); White Blood Cell 6.9 10^3/uL (4.4-10.8)
[2019-04-29 08:03] LABS: INR 0.99 (0.9-1.15); Partial Thromboplastin Time 29.5 sec (23.64-32.05)
[2019-04-29] MEDS: SEVELAMER 800 MG TAB PO SCH ×3 (08:05→17:48)
[2019-04-29 08:09] LABS: % Iron Saturation 54.9 % (20-55)
[2019-04-29 08:10] LABS: Albumin 2.8 g/dL (3.4-5.0); Calcium 6.7 mg/dL (8.5-10.1)
[2019-04-29 08:14] LABS: BUN/Creatinine Ratio 4.6; Bilirubin, Direct 0.1 mg/dL (0-0.2); Bilirubin, Total 0.3 mg/dL (0.2-1.0); Total Protein 6.4 g/dL (6.4-8.2); Uric Acid 6.3 mg/dL (3.5-7.2)
[2019-04-29 08:20] LABS: Potassium 6.1 mmol/L (3.5-5.1)
--- NOTE | 2019-04-29 08:24 | NUR ---
ANIA CAMERON FOR CRITICAL POTASSIUM AND CREATININE
[2019-04-29] MEDS: DOCUSATE SOD 100 MG CAP PO SCH ×2 (09:15→22:07)
[2019-04-29] MEDS: FERROUS SULFATE 325 MG TAB PO SCH ×3 (09:15→20:06)
[2019-04-29] MEDS: LEVETIRACETAM 500 MG TAB PO SCH (09:15)
[2019-04-29] MEDS: NIFEdipine ER 30 MG TAB PO SCH (09:15)
--- NOTE | 2019-04-29 09:15 | NUR ---
PAGED MD CAMERON AGAIN FOR CRITICAL LABS
--- NOTE | 2019-04-29 09:45 | NUR ---
SPOKE WITH MD CAMERON. INFORMED HIM OF CITICAL LABS ORDERED ALBUTEROL, LOKELMA, CALCIUM GLUCONATE, DEXTROSE 50%, 5 UNITS INSULIN. WILL FOLLOW THROUGH WITH ORDERS.
[2019-04-29] MEDS ORDERED: SODIUM ZIRCONIUM CYCL 10 GM PAK PO ONE (10:00)
[2019-04-29] MEDS ORDERED: ALBUTEROL SULF 2.5 MG/0.5ML(0.5%) NEB SOLN NEB ONE (10:00)
[2019-04-29] MEDS ORDERED: DEXTROSE (50%) 50ML SYRG IV ONE (10:00)
[2019-04-29] MEDS ORDERED: InsuLIN REG 1unit/0.01ml Soln (100units/ml) IV ONE (10:00)
[2019-04-29] MEDS ORDERED: CALCIUM GLUC 4.65meq/50ml D5AE 50 ML IV ONE (10:00)
--- NOTE | 2019-04-29 10:00 | NUR ---
PAGED DR. Abdirahman BLAND REGARDING PATIENT'S CRITICAL LABS PER DR. CAMERON'S REQUEST. AWAITING CALL BACK
--- NOTE | 2019-04-29 10:45 | NUR ---
DR. Abdirahman BLAND CALLED BACK. UPDATED HIM ON PATIENT'S STATUS INCLUDING CRITICAL LABS AND NEW ORDERS FROM DR. CAMERON. DR. Abdirahman BLAND AGREES WITH ORDERS AND WANTS VELTASSA TO BE ADDED. INFORMED MD, PHARMACY DOES NOT CARRY VELTASSA HERE, MD IS AWARE AND WANTS LOKELMA 30GM BID ONE TIME. MD ALSO CHANGED PERITONEAL DIALYSIS ORDERS. INFORMED PATIENT AND HE VERBALIZED UNDERSTANDING. WILL FOLLOW THROUGH WITH ORDERS.
--- NOTE | 2019-04-29 11:20 | NUR ---
PAGED MD CAMERON REGARDING EKG RESULTS. AWAITING CALL BACK
--- NOTE | 2019-04-29 11:50 | NUR ---
PATIENT STARTED PERITONEAL DIALYSIS. PATIENT TOLERATED WELL. INFORMED PATIENT, DR. BLAND WANTS GREEN BAG TO DWELL FOR 4 HOURS, PATIENT VERBALIZED UNDERSTANDING. UA SENT TO LAB
[2019-04-29 12:50] LABS: Urine Bacteria NONE SEEN /hpf (None Seen); Urine Blood Negative /uL (Negative); Urine Specific Gravity 1.011 (1.001-1.035); Urine WBC 3 /hpf (0 - 3)
[2019-04-29 13:00] LABS: Protein, Urine 432.6 mg/dL (0.0-11.9)
--- NOTE | 2019-04-29 16:00 | NUR ---
STARTED SECOND BAG OF PERITONEAL DIALYSIS PATIENT TOLERATED WELL
[2019-04-29 17:57] LABS: Albumin 2.5 g/dL (3.4-5.0); Potassium 4.1 mmol/L (3.5-5.1)
[2019-04-29 18:00] LABS: BUN/Creatinine Ratio 4.8; Bilirubin, Total 0.3 mg/dL (0.2-1.0); Total Protein 5.8 g/dL (6.4-8.2)
--- NOTE | 2019-04-29 18:19 | NUR ---
INFORMED DR. Abdirahman BLAND OF NEW LABS INCLUDING CRITICAL CREATININE LEVEL. PER MD, PATIENT IS CLEARED FOR DISCHARGE PER NEPHRO STAND POINT. MD WANTS PATIENT TO FOLLOW UP WITH HIM WEDNESDAY AT 12 PM AT HIS CLINIC AND WANTS HIM TO CONTINUE HOME PERITONEAL DIALYSIS
--- NOTE | 2019-04-29 19:16 | NUR ---
CLOSING SHIFT NOTE ENDORSED CARE TO RAVELER RN MARY. PATIENT HAS NO S/S OF DISTRESS/SOB OR PAIN AT THIS TIME.
--- NOTE | 2019-04-29 19:21 | NUR ---
Opening Shift Note Received report from day shift nurseMeche. Assumed care of patient. Patient is awake, alert, and orientated x 4. No S/S of distress/SOB or pain. Patient claims to be on schedule with this peritoneal dialysis and claims to only need help hanging the bag. Bed is in lowest position with side rails up x 2. Bed brakes are locked and call light is with in reach. HOB is 30 degrees. Instructed on POC and to call for assist PRN, will continue to monitor for changes Q1hr and PRN.
[2019-04-29] MEDS: ATORVASTATIN 20 MG TAB PO SCH (21:59)
[2019-04-30 05:00] VITALS: BP 142/84
[2019-04-30] MEDS: hydrALAZINE HCL 25 MG TAB PO SCH ×2 (06:01→14:00)
[2019-04-30] MEDS: ACCU-CHEK COMFORT CURVE STRIP VI SCH ×2 (06:02→11:45)
[2019-04-30] MEDS: InsuLIN REG 1unit/0.01ml Soln (100units/ml) SC SCH ×2 (06:08→11:30)
[2019-04-30 06:51] LABS: Basophils # (auto) 0.1 uL; Basophils % (auto) 1.3 % (0.0-2.0); Eosinophils # (auto) 0.3 uL; Eosinophils % (auto) 7.4 % (0.0-7.0); Hematocrit 25.4 % (41.0-53.0); Hemoglobin 8.7 g/dL (13.5-17.5); Lymphocytes # (auto) 1.2 uL; Lymphocytes % (auto) 31.3 % (10.0-50.0); Mean Corpuscular Hemoglobin 31.1 pg (28.0-32.0); Mean Corpuscular Hgb Conc. 34.4 g/dL (32.0-36.0); Mean Corpuscular Volume 90.4 fL (80.0-100.0); Monocytes # (auto) 0.4 uL; Monocytes % (auto) 9.8 % (0.0-12.0); Neutrophils % (auto) 50.2 % (37.0-80.0); Platelet Count (auto) 219 10^3/uL (140-450); Red Blood Cells 2.81 10^6/uL (4.5-5.90); Red Cell Distribution Width 15.7 % (11.8-14.3); White Blood Cell 3.9 10^3/uL (4.4-10.8)
[2019-04-30 07:01] LABS: Calcium 6.8 mg/dL (8.5-10.1); Potassium 4.9 mmol/L (3.5-5.1)
[2019-04-30 07:07] LABS: Albumin 2.6 g/dL (3.4-5.0); BUN/Creatinine Ratio 4.7; Bilirubin, Total 0.2 mg/dL (0.2-1.0); Magnesium 2.2 mg/dL (1.6-2.6); Phosphorus 6.5 mg/dL (2.5-4.90); Total Protein 5.8 g/dL (6.4-8.2)
--- NOTE | 2019-04-30 07:13 | NUR ---
closing notes endorsed care to day shift nursekathie.
[2019-04-30 07:40] VITALS: BP 136/79
[2019-04-30 08:00] VITALS: BP 136/79
--- NOTE | 2019-04-30 08:00 | NUR ---
ANIA CARNEY REGARDING CRITICAL CREATININE LEVEL
[2019-04-30] MEDS: SEVELAMER 800 MG TAB PO SCH ×2 (08:22→11:43)
[2019-04-30] MEDS: DOCUSATE SOD 100 MG CAP PO SCH (10:11)
[2019-04-30] MEDS: FERROUS SULFATE 325 MG TAB PO SCH ×2 (10:11→15:00)
[2019-04-30] MEDS: NIFEdipine ER 30 MG TAB PO SCH (10:12)
--- NOTE | 2019-04-30 10:20 | NUR ---
EEG BEING DONE AT THIS TIME.
--- NOTE | 2019-04-30 10:40 | NUR ---
MD CAMERON AT BEDSIDE. PER MD CAMERON PATIENT WILL BE DISCHARGED TODAY AND CAN DO MRI OUTPATIENT. MD SENT PRESCRIPTIONS VIA E-SCRIPT, PATIENT IS AWARE.
--- NOTE | 2019-04-30 10:45 | NUR ---
INFORMED MD CAMERON PATIENT'S HEART RHYTHM IS SR WITH PVCs IS AWARE. NO NEW ORDERS GIVEN.
--- NOTE | 2019-04-30 11:35 | NUR ---
MD Abdirahman BLAND AT BEDSIDE. INFORMED MD OF CRITICAL CREATININE. NO NEW ORDERS GIVEN. MD CLEARED PATIENT FOR DISCHARGE. MD BLAND WANTS MD CAMERON TO GIVE SCRIPT FOR VELTASSA 8.4g PO DAILY, INFORMED MD CAMERON. PER MD HE WILL SEND THE PRESCRIPTIONS ELECTRONICALLY. INFORMED PATIENT TO HUB BANDER PRESCRIPTIONS ONCE HE IS DISCHARGED. PATIENT VERBALIZED UNDERSTANDING.
--- NOTE | 2019-04-30 11:48 | NUR ---
EEG- Electroencephalogram completed on 04/30/2019.
[2019-04-30 12:00] VITALS: BP 142/101
--- NOTE | 2019-04-30 14:11 | NUR ---
OPENING SHIFT NOTE ASSUMED CARE OF PATIENT FROM REGIONAL TRANSFER LIAISON THOMAS HERNANDEZ. PATIENT IS AWAKE AND ALERT X4. PATIENT HAS NO S/S OF DISTRESS/SOB OR PAIN. INSTRUCTED PATIENT ON POC, PATIENT VERBALIZED UNDERSTANDING. FALL PRECAUTIONS IN PLACE, BED WHEELS LOCKED PADDED SIDE RAILS RAISED X2, BED ALARM ON, CALL LIGHT IS WITHIN REACH. WILL CONTINUE TO MONITOR. Addendum: 04/30/19 at 1413 by Meche Fernández RN RN TIME 714 NOT 1413
[2019-04-30 14:23] VITALS: BP 142/74
[2019-04-30 14:30] VITALS: BP 136/75
--- NOTE | 2019-04-30 15:00 | NUR ---
Discharge instructions given as ordered. Encourage to follow up with PMD as instructed. All questions and concerns addressed. Patient verbalized understanding. Medication reconciliation form completed and copy given to patient. IV removed with catheter intact, pressure dressing applied. Telemetry unit returned to ICU. Patient ambulated to vehicle all personal belongings, accompanied family member. No distress noted at time of departure.
[2019-04-30] MEDS ORDERED: DOCU100C8 PO (16:56)
[2019-04-30] MEDS ORDERED: LACT10SO3 PO (16:56)
[2019-04-30] MEDS ORDERED: HYDR-2691 PO (16:56)
[2019-04-30] MEDS ORDERED: CALC667C5 PO (16:56)
[2019-04-30] MEDS ORDERED: FER325T PO (16:56)
[2019-04-30] MEDS ORDERED: ATOR20TA50 PO (16:56)
[2019-04-30] MEDS ORDERED: NIFE1TAB31 PO (16:56)
[2019-04-30] MEDS ORDERED: PATI1POW PO (17:03)
[2019-04-30] MEDS ORDERED: MAGN400T21 PO (17:03)
== END 2019-04-30 15:00 | disposition home or self-care (01) | DRG 100 ==
LOC: ER 12:18 → EDBD 12:18 → TELE 12:19 → TELE-EAST 17:39
PROVIDERS: ADMIT Internal Medicine; ATTEND Hospitalist
DX: G40.409 Other generalized epilepsy and epileptic syndromes, not intractable, without status epilepticus (principal); G93.41 Metabolic encephalopathy; N18.6 End stage renal disease; I12.0 Hypertensive chronic kidney disease with stage 5 chronic kidney disease or end stage renal disease; E87.5 Hyperkalemia; D63.8 Anemia in other chronic diseases classified elsewhere; E66.3 Overweight; E78.5 Hyperlipidemia, unspecified; W18.39XA Other fall on same level, initial encounter; E11.21 Type 2 diabetes mellitus with diabetic nephropathy; S00.03XA Contusion of scalp, initial encounter; Z82.49 Family history of ischemic heart disease and other diseases of the circulatory system; Z83.3 Family history of diabetes mellitus; Z99.2 Dependence on renal dialysis; Y93.89 Activity, other specified; Y92.89 Other specified places as the place of occurrence of the external cause; Y99.8 Other external cause status; Z79.899 Other long term (current) drug therapy; Z68.24 Body mass index [BMI] 24.0-24.9, adult
CPT/HCPCS: 36415; 70450; 71045; 76775; 80053; 80076; 80320; 81001; 82085; 82306; 82550; 82570; 82728; 82962; 83036; 83540; 83550; 83735; 83880; 83970; 84100; 84156; 84166; 84300; 84550; 85025; 85610; 85652; 85730; 86225; 86235; 87340; 93005; 93306; 94640; 95819; 96365; 99291; G0378; J0153; J0610; J1815; J7060; Q0162